=== PATIENT | male | born 1935 | race Caucasian/White ===

== ENCOUNTER 2018-01-21 17:51 | Emergency (ER) | payer MEDICARE, OTHER ==
[~2018-01-21] VITALS: Wt 82.6 kg
[~2018-01-21 17:51] MED LIST: ASPIRIN81 M1 PO; ATORVASTATIN CA80 M1 PO; B COMPLEX1 CAP; CHLORZOXAZONE500 M2 PO; EFFIENT10 M1 PO; FUROSEMIDE20 M1 PO; LISINOPRIL20 MG PO; LISINOPRIL5 MG PO; METOPROLOL25 MG PO; NAPROSYN500 MG PO; NKHM; NO DAILY MEDS; POTASSIUM CHLOR8 MEQ PO; VITAMIN B1225 MCG; VITAMIN D1000 IU PO
[2018-01-21] MEDS ORDERED: MEDROL DOSEPAK4 MG PO (20:39)
== END 2018-01-21 20:45 | disposition home or self-care (01) ==
LOC: ED 17:51
DX: M25.552 Pain in left hip (principal); M54.89 Other dorsalgia; M79.662 Pain in left lower leg; Z88.0 Allergy status to penicillin; Z79.82 Long term (current) use of aspirin; Z79.899 Other long term (current) drug therapy; Z90.49 Acquired absence of other specified parts of digestive tract

== ENCOUNTER → 2020-03-31 | Outpatient (CLI) | payer MEDICARE, OTHER ==
[~2020-03-31] MED LIST changes: +MEDROL DOSEPAK4 MG PO
== END | disposition home or self-care (01) ==
LOC: US 08:09
PROVIDERS: ATTEND Physician Assistant
DX: N28.1 Cyst of kidney, acquired (principal); Z90.49 Acquired absence of other specified parts of digestive tract

== ENCOUNTER 2020-12-03 11:07 | Inpatient (IN) | payer MEDICARE, OTHER ==
[~2020-12-03] VITALS: Ht 170.1 cm; Wt 80.5 kg
[2020-12-03] VITALS (8 sets, daily range): BP systolic 87–131; BP diastolic 34–52
[2020-12-03 11:36] LABS: BASO % 0.3 % (0.0-1.0); HEMATOCRIT 39.2 % (42.0-52.0); LYMPH # 0.6 10*3/uL (1.3-4.4); LYMPH % 15.8 % (27.0-41.0); MEAN CELL VOLUME 92.9 fl (80.0-94.0); MEAN CORPUSCULAR HGB 31.8 pg (27.0-31.0); MEAN CORPUSCULAR HGB CONC 34.2 g/dl (33.0-37.0); MEAN PLATELET VOLUME 11.7 fl (9.6-12.3); MONO # 0.3 10*3/uL (0.1-1.0); MONO % 7.5 % (3.0-9.0); NEUT # 2.8 10*3/uL (2.3-7.9); NEUT % 75.1 % (47.0-73.0); PLATELET COUNT AUTOMATED 85 10*3/uL (130-400); RED BLOOD COUNT 4.22 10*6/uL (4.50-5.90); RED CELL DISTRI WIDTH 12.6 % (0-14.5); WHITE BLOOD COUNT 3.7 10*3/uL (4.8-10.8)
[2020-12-03 11:55] LABS: ALBUMIN 3.2 gm/dl (3.1-4.5); CREATININE 1.85 mg/dL (0.70-1.30); POTASSIUM 4.1 mmol/L (3.5-5.1); TOTAL PROTEIN 6.5 gm/dL (6.4-8.2); TROPONIN I 0.021 ng/ml (<0.045)
[2020-12-03] MEDS ORDERED: ZESTRIL40 MG PO (15:19)
[2020-12-03] MEDS ORDERED: COREG12.5 M1 PO (15:19)
[2020-12-03] MEDS ORDERED: LIPITOR40 MG PO (15:19)
[2020-12-03 15:42] LABS: ABG BASE EXCESS -5.6 mmol/L (-2.0-2.0); ARTERIAL BLOOD GAS PH 7.384 (7.35-7.45); ARTERIAL BLOOD GAS PO2 61.5 (80-90)
[2020-12-04] VITALS: BP 146/60
[2020-12-04 06:39] LABS: ALBUMIN 2.8 gm/dl (3.1-4.5); CREATININE 1.43 mg/dL (0.70-1.30); POTASSIUM 4.4 mmol/L (3.5-5.1); TOTAL PROTEIN 6.1 gm/dL (6.4-8.2)
[2020-12-04 06:41] LABS: BASO % 0.2 % (0.0-1.0); HEMATOCRIT 38.7 % (42.0-52.0); LYMPH # 0.4 10*3/uL (1.3-4.4); MEAN CELL VOLUME 92.8 fl (80.0-94.0); MEAN CORPUSCULAR HGB 31.4 pg (27.0-31.0); MEAN CORPUSCULAR HGB CONC 33.9 g/dl (33.0-37.0); MEAN PLATELET VOLUME 11.8 fl (9.6-12.3); MONO # 0.3 10*3/uL (0.1-1.0); MONO % 6.4 % (3.0-9.0); NEUT # 3.4 10*3/uL (2.3-7.9); PLATELET COUNT AUTOMATED 101 10*3/uL (130-400); RED BLOOD COUNT 4.17 10*6/uL (4.50-5.90); RED CELL DISTRI WIDTH 12.3 % (0-14.5); WHITE BLOOD COUNT 4.2 10*3/uL (4.8-10.8)
[2020-12-04 06:45] LABS: THYROID STIM HORMONE (HS) 0.578 uIU/ml (0.358-4.75)
[2020-12-04 08:00] VITALS: BP 115/49
[2020-12-04 12:00] VITALS: BP 130/57
[2020-12-04 16:00] VITALS: BP 135/43
[2020-12-04 20:00] VITALS: BP 140/48
[2020-12-05] VITALS: BP 127/50
[2020-12-05 06:09] LABS: BUN 26 mg/dl (7-24); CHLORIDE 107 mmol/L (98-107); POTASSIUM 4.3 mmol/L (3.5-5.1); SODIUM 134 mmol/L (136-145)
[2020-12-05 06:11] LABS: ALKALINE PHOSPHATASE 93 U/L (45-117); CREATININE 1.22 mg/dL (0.70-1.30); LDH 300 U/L (87-241); SGOT/AST 43 IU/L (3-35); SGPT/ALT 37 U/L (12-78); TOTAL PROTEIN 6.4 gm/dL (6.4-8.2)
[2020-12-05 06:29] LABS: BASO % 0.1 % (0.0-1.0); HEMATOCRIT 40.6 % (42.0-52.0); LYMPH # 0.6 10*3/uL (1.3-4.4); LYMPH % 5.2 % (27.0-41.0); MEAN CELL VOLUME 94.4 fl (80.0-94.0); MEAN CORPUSCULAR HGB 31.6 pg (27.0-31.0); MEAN CORPUSCULAR HGB CONC 33.5 g/dl (33.0-37.0); MEAN PLATELET VOLUME 11.2 fl (9.6-12.3); MONO # 0.5 10*3/uL (0.1-1.0); MONO % 4.3 % (3.0-9.0); NEUT % 89.3 % (47.0-73.0); PLATELET COUNT AUTOMATED 125 10*3/uL (130-400); RED CELL DISTRI WIDTH 12.3 % (0-14.5); WHITE BLOOD COUNT 12.3 10*3/uL (4.8-10.8)
[2020-12-05 08:00] VITALS: BP 141/51
[2020-12-05 12:00] VITALS: BP 128/46
[2020-12-05 16:00] VITALS: BP 147/67
[2020-12-05 20:00] VITALS: BP 130/64
[2020-12-06] VITALS: BP 159/79
[2020-12-06 02:56] VITALS: BP 151/67
[2020-12-06 06:09] LABS: BASO % 0.1 % (0.0-1.0); HEMATOCRIT 42.7 % (42.0-52.0); LYMPH # 0.5 10*3/uL (1.3-4.4); LYMPH % 7.3 % (27.0-41.0); MEAN CELL VOLUME 93.4 fl (80.0-94.0); MEAN CORPUSCULAR HGB 32.2 pg (27.0-31.0); MEAN CORPUSCULAR HGB CONC 34.4 g/dl (33.0-37.0); MEAN PLATELET VOLUME 11.1 fl (9.6-12.3); MONO # 0.3 10*3/uL (0.1-1.0); MONO % 4.8 % (3.0-9.0); NEUT # 6.1 10*3/uL (2.3-7.9); NEUT % 86.8 % (47.0-73.0); PLATELET COUNT AUTOMATED 119 10*3/uL (130-400); RED BLOOD COUNT 4.57 10*6/uL (4.50-5.90); RED CELL DISTRI WIDTH 12.2 % (0-14.5)
[2020-12-06 06:12] LABS: ALBUMIN 3.2 gm/dl (3.1-4.5); CREATININE 1.38 mg/dL (0.70-1.30); POTASSIUM 4.2 mmol/L (3.5-5.1); TOTAL PROTEIN 6.8 gm/dL (6.4-8.2)
[2020-12-06 08:00] VITALS: BP 126/58
[2020-12-06 12:00] VITALS: BP 101/47
[2020-12-06 16:00] VITALS: BP 110/49
[2020-12-06 20:00] VITALS: BP 101/45
[2020-12-07] VITALS: BP 133/48
[2020-12-07 06:19] LABS: POTASSIUM 3.9 mmol/L (3.5-5.1)
[2020-12-07 06:35] LABS: CREATININE 1.54 mg/dL (0.70-1.30)
[2020-12-07 06:38] LABS: HEMATOCRIT 39.7 % (42.0-52.0); LYMPH # 0.4 10*3/uL (1.3-4.4); MEAN CELL VOLUME 95.4 fl (80.0-94.0); MEAN CORPUSCULAR HGB 31.5 pg (27.0-31.0); MEAN PLATELET VOLUME 11.7 fl (9.6-12.3); MONO # 0.5 10*3/uL (0.1-1.0); MONO % 6.1 % (3.0-9.0); NEUT # 6.4 10*3/uL (2.3-7.9); NEUT % 86.4 % (47.0-73.0); PLATELET COUNT AUTOMATED 142 10*3/uL (130-400); RED BLOOD COUNT 4.16 10*6/uL (4.50-5.90); RED CELL DISTRI WIDTH 12.4 % (0-14.5); WHITE BLOOD COUNT 7.4 10*3/uL (4.8-10.8)
[2020-12-07 08:00] VITALS: BP 123/53
[2020-12-07 12:00] VITALS: BP 141/61
[2020-12-07 16:00] VITALS: BP 118/53
[2020-12-07 20:00] VITALS: BP 127/54
[2020-12-08] VITALS: BP 126/59
[2020-12-08 06:00] LABS: BUN 39 mg/dl (7-24); CHLORIDE 101 mmol/L (98-107); CREATININE 1.14 mg/dL (0.70-1.30); POTASSIUM 4.7 mmol/L (3.5-5.1); SODIUM 133 mmol/L (136-145)
[2020-12-08 06:29] LABS: BASO % 0.1 % (0.0-1.0); EOS % 0.1 % (1.0-4.0); HEMATOCRIT 38.5 % (42.0-52.0); LYMPH # 0.7 10*3/uL (1.3-4.4); MEAN CELL VOLUME 94.1 fl (80.0-94.0); MEAN CORPUSCULAR HGB 31.3 pg (27.0-31.0); MEAN CORPUSCULAR HGB CONC 33.2 g/dl (33.0-37.0); MEAN PLATELET VOLUME 11.3 fl (9.6-12.3); MONO # 0.7 10*3/uL (0.1-1.0); MONO % 7.2 % (3.0-9.0); NEUT # 7.9 10*3/uL (2.3-7.9); NEUT % 84.3 % (47.0-73.0); PLATELET COUNT AUTOMATED 153 10*3/uL (130-400); RED BLOOD COUNT 4.09 10*6/uL (4.50-5.90); RED CELL DISTRI WIDTH 12.1 % (0-14.5); WHITE BLOOD COUNT 9.3 10*3/uL (4.8-10.8)
[2020-12-08 08:00] VITALS: BP 122/47
[2020-12-08 12:00] VITALS: BP 126/46
[2020-12-08 16:00] VITALS: BP 123/47
[2020-12-08 20:00] VITALS: BP 123/53
[2020-12-09] VITALS: BP 132/58; BP 151/55
[2020-12-09 06:51] LABS: BUN 36 mg/dl (7-24); CHLORIDE 103 mmol/L (98-107); CREATININE 1.13 mg/dL (0.70-1.30); POTASSIUM 4.6 mmol/L (3.5-5.1); SODIUM 135 mmol/L (136-145)
[2020-12-09 07:00] LABS: BASO % 0.1 % (0.0-1.0); EOS % 0.1 % (1.0-4.0); HEMATOCRIT 39.1 % (42.0-52.0); LYMPH # 0.9 10*3/uL (1.3-4.4); MEAN CELL VOLUME 93.8 fl (80.0-94.0); MEAN CORPUSCULAR HGB 31.7 pg (27.0-31.0); MEAN CORPUSCULAR HGB CONC 33.8 g/dl (33.0-37.0); MEAN PLATELET VOLUME 11.2 fl (9.6-12.3); MONO # 0.7 10*3/uL (0.1-1.0); MONO % 7.1 % (3.0-9.0); NEUT # 7.7 10*3/uL (2.3-7.9); NEUT % 82.4 % (47.0-73.0); PLATELET COUNT AUTOMATED 181 10*3/uL (130-400); RED BLOOD COUNT 4.17 10*6/uL (4.50-5.90); RED CELL DISTRI WIDTH 12.1 % (0-14.5); WHITE BLOOD COUNT 9.4 10*3/uL (4.8-10.8)
[2020-12-09 12:00] VITALS: BP 153/48
[2020-12-09] MEDS ORDERED: DECADRON6 M1 PO (14:44)
== END 2020-12-09 16:10 | disposition home health service (06) | DRG 177 ==
LOC: ED 11:07 → EDHOLD 13:03 → 4E 13:03 → EDHOLD 13:05 → 4E 13:16
PROVIDERS: Internal Medicine; Student in an Organized Health Care Education/Training Program; ADMIT Internal Medicine; ATTEND Internal Medicine
PROC: XW033E5 Introduction of Remdesivir Anti-infective into Peripheral Vein, Percutaneous Approach, New Technology Group 5 (ICD-10-PCS; principal; 2020-12-04)
PROC: 5A09357 Assistance with Respiratory Ventilation, Less than 24 Consecutive Hours, Continuous Positive Airway Pressure (ICD-10-PCS; 2020-12-04)
PROC: 5A09357 Assistance with Respiratory Ventilation, Less than 24 Consecutive Hours, Continuous Positive Airway Pressure (ICD-10-PCS; 2020-12-05)
DX: U07.1 COVID-19 (principal); N17.0 Acute kidney failure with tubular necrosis; J12.82 Pneumonia due to coronavirus disease 2019; J96.01 Acute respiratory failure with hypoxia; J44.1 Chronic obstructive pulmonary disease with (acute) exacerbation; E87.1 Hypo-osmolality and hyponatremia; E66.3 Overweight; I95.9 Hypotension, unspecified; I10 Essential (primary) hypertension; D64.9 Anemia, unspecified; D69.6 Thrombocytopenia, unspecified; R73.9 Hyperglycemia, unspecified; E83.41 Hypermagnesemia; R74.01 Elevation of levels of liver transaminase levels; F17.210 Nicotine dependence, cigarettes, uncomplicated; Z71.6 Tobacco abuse counseling; Z88.0 Allergy status to penicillin; Z79.82 Long term (current) use of aspirin; Z79.899 Other long term (current) drug therapy; Z82.49 Family history of ischemic heart disease and other diseases of the circulatory system; Z68.26 Body mass index [BMI] 26.0-26.9, adult

== ENCOUNTER 2023-09-16 11:36 | Emergency (ER) | payer MEDICARE ==
[~2023-09-16] VITALS: Ht 170.1 cm; Wt 78.9 kg
[~2023-09-16 11:36] MED LIST changes: +COREG12.5 M1 PO; +DECADRON6 M1 PO; +LIPITOR40 MG PO; +ZESTRIL40 MG PO
[2023-09-16] MEDS ORDERED: OMEPRAZOLE40 MG PO (11:51)
[2023-09-16] MEDS ORDERED: METFORMIN HYDR500 MG PO (11:52)
[2023-09-16] MEDS ORDERED: ELIQUIS5 M1 PO (11:53)
[2023-09-16] MEDS ORDERED: ATORVASTATIN CA80 M1 PO (11:55)
[2023-09-16] MEDS ORDERED: VITAMIN D350 MCG PO (11:56)
[2023-09-16] MEDS ORDERED: SODIUM CHLORIDE 0.9% 1,000 ML IV ONE (12:05)
[2023-09-16] MEDS ORDERED: FAMOTIDINE 50 ML IV ONE (12:05)
[2023-09-16] MEDS ORDERED: Ondansetron Hydrochloride 4 MG/2 ML VIAL IV ONE (12:05)
[2023-09-16 12:20] LABS: BASO % 0.2 % (0.0-1.0); EOS # 0.1 10*3/uL (0.0-0.4); EOS % 2.3 % (1.0-4.0); LYMPH # 1.3 10*3/uL (1.3-4.4); LYMPH % 26.8 % (27.0-41.0); MEAN CELL VOLUME 96.6 fl (80.0-94.0); MEAN CORPUSCULAR HGB 31.5 pg (27.0-31.0); MEAN CORPUSCULAR HGB CONC 32.6 g/dl (33.0-37.0); MEAN PLATELET VOLUME 10.9 fl (9.6-12.3); MONO # 0.5 10*3/uL (0.1-1.0); MONO % 9.6 % (3.0-9.0); NEUT # 2.9 10*3/uL (2.3-7.9); NEUT % 60.7 % (47.0-73.0); PLATELET COUNT AUTOMATED 94 10*3/uL (130-400); RED BLOOD COUNT 4.35 10*6/uL (4.50-5.90); RED CELL DISTRI WIDTH 12.9 % (0-14.5); WHITE BLOOD COUNT 4.7 10*3/uL (4.8-10.8)
[2023-09-16 12:34] LABS: POTASSIUM 4.1 mmol/L (3.4-5.1); TOTAL PROTEIN 6.3 gm/dL (6.0-8.0)
[2023-09-16] MEDS ORDERED: PEPCID20 MG PO (13:11)
[2023-09-16] MEDS ORDERED: ONDANSETRON4 MG SL (13:11)
== END 2023-09-16 13:30 | disposition home or self-care (01) ==
LOC: ED 11:36
PROVIDERS: Emergency Medicine
DX: R11.2 Nausea with vomiting, unspecified (principal); R19.7 Diarrhea, unspecified; I10 Essential (primary) hypertension; J44.9 Chronic obstructive pulmonary disease, unspecified; Z88.0 Allergy status to penicillin; Z79.899 Other long term (current) drug therapy; Z90.49 Acquired absence of other specified parts of digestive tract